=== PATIENT | female | born 1935 | race Caucasian/White ===

== ENCOUNTER 2016-06-26 14:32 | Inpatient (IN) | payer MEDICARE, BC ==
--- NOTE | 2016-06-21 12:35 | MH ---
cc: DEYA MORALES DATE OF ADMISSION: 07/04/2016 ADMITTING DIAGNOSIS Osteoarthritis of the right hip and pain of the right hip. HISTORY The patient is a 80-year-old white female who has experienced pain of her right hip of at least 7 months' duration. She had noted the gradual onset of her pain unrelated to injury or unusual activity. She had been receiving chiropractic intervention that had not proven to be of any appreciable benefit and with the passage of time became increasingly more symptomatic with pain that had begun to interfere with all ambulatory activities. She had been taking Advil and meloxicam for pain management as prescribed by her primary care physician that unfortunately had not afforded her any significant pain relief. She was later seen by the undersigned physician in March of this past year and at that time x-ray studies of her right hip revealed obvious degenerative changes with pronounced compromise of the joint space and hypertrophic bony reaction involving the margins of the femoral head. Additional degenerative changes were noted throughout the entire lumbar region. Findings and treatment options were reviewed with the patient at that time. She was not quite ready to commit to any form of aggressive intervention. She was prescribed tramadol for pain management and thereafter followed on an outpatient basis. She returned to the office in the more recent past indicating that with the passage of time she was becoming increasingly more symptomatic with pain and felt that she was ready to proceed with a more definitive course of treatment. The involvement of total hip arthroplasty was outlined in detail with emphasis being made that the decision to proceed with surgery would be left entirely to the patient's discretion. She felt that she had arrived at that point in time and was ready to proceed with operative treatment as discussed. In compliance with her wishes she is currently being admitted in order that the above be accomplished. PAST MEDICAL HISTORY 1. Significant for having undergone a left total hip arthroplasty for which the patient had done quite well in this regard. 2. Additional surgeries have included acromioplasty of the left shoulder with mini-open rotator cuff repair. 3. Multiple dental extractions subsequently necessitating full dentures. 4. Laparoscopic cholecystectomy. 5. Tonsillectomy. 6. D&C. 7. section. 8. Sinus surgery. 9. Retinal surgery of the left eye. 10. Hospitalized in the past for both chest pain that did lead to cardiac catheterization. 11. More recently medical management of bronchitis. MEDICAL ILLNESSES Hypothyroidism. Heart disease. CURRENT MEDICATIONS 1. Synthroid 88 mcg daily. 2. Amlodipine 5 mg daily. 3. Vitamin D3. 4. Tramadol 50 mg p.r.n. 5. Saline nasal spray daily. 6. Currently she is started on cephalexin for history of an abscess of her right elbow. ALLERGIES She indicates drug allergy to - CODEINE. POSSIBLY TRAMADOL that has been associated with some degree of nausea and vomiting. She has tolerated Demerol without adverse side effect and possibly morphine. NEOSPORIN has caused skin irritation. REVIEW OF SYSTEMS HEENT: She does wear glasses. Denies headache, seizure or syncope. Occasional sinus congestion as related to environmental irritants. No epistaxis. Auditory acuity intact. No tinnitus. No bleeding gums or dysphagia. Has complete dentures. CARDIORESPIRATORY: Occasional shortness of breath related to cardiac disease. Positive history for angina, status post cardiac catheterization. GI: Appetite good. History of irritable bowel syndrome with occasional diarrhea. No hepatitis. Status post cholecystectomy. No ulcers. Previous history of hemorrhoids. : No urinary tract infection. No kidney stones. MUSCULOSKELETAL: Fracture of the lower leg treated by cast immobilization. History of scoliosis. PSYCHIATRIC: No psychiatric illness. Remaining review of systems is unremarkable and noncontributory. FAMILY HISTORY The patient has been a for approximately three years, her at 85 years of age with history of bone cancer. She has three living sons, one son secondary to trauma related to an automobile accident. A daughter at 40 years of age secondary to ethanol abuse. Her family history is positive for hypertension, stroke, skin cancer and heart disease. SOCIAL HISTORY The patient has been retired for at least 20 years, having worked in the [employer] business. She completed a high school education. Denies active use of tobacco for at least 20 years but had been a 30 pack-year user in her past. Limited ethanol consumption socially. PHYSICAL EXAMINATION GENERAL: Height 5 feet, 1 inch, weight 115 pounds. An alert, oriented and responsive 80-year-old white female who sits quietly upon the examination table with no obvious distress. HEAD, EYES, EARS, NOSE, AND THROAT: Pupils are equally, round and reactive to light. Extraocular movements full. Sclerae clear. External nares clear. External auditory canals clear. Edentulous. Mucous membranes pink and moist. Pharynx clear. NECK: Supple. Active mobility without significant pain. Carotid pulse palpable bilaterally. Trachea midline. Thyroid without enlargement. LUNGS: Clear to auscultation and percussion. No CVA tenderness. No discomfort throughout the dorsal lumbar spine. HEART: Regular rhythm. No murmur or gallop. ABDOMEN: Soft, nontender. Bowel sounds present. PELVIC: Per primary care physician. EXTREMITIES: Right hip - There is no localizing tenderness about the hip area. There is restricted mobility of the hip joint in all ranges assessed, being most pronounced with internal rotation and pain associated with the extremes of motion. No sensation of crepitation or instability. Straight-leg raising negative at 80 degrees. Dru sign positive. Antalgic gait. NEUROLOGIC: Cranial nerves II-XII grossly intact. IMPRESSION Osteoarthritis right hip. Pain right hip. PLAN Right total hip arthroplasty. The nature of the planned surgical procedure, the potential complications and risks associated, the expectations of surgery and the consent form were thoroughly reviewed with the patient prior to her admission to the hospital. Dolores has indicated her full understanding regarding all the above and given consent to proceed with treatment as outlined. Medical evaluation and clearance for surgery will be completed by her primary care physician Dr. Joe Craft. MD SACHA Lujan/SSB /12:06 PM /12:21 PM
[~2016-06-26] VITALS: Ht 152.4 cm; Wt 58.4 kg
[2016-06-27] MEDS ORDERED: TRAM50TA PO (10:07)
[2016-06-27] MEDS ORDERED: VITA100036 PO (10:07)
[2016-06-27] MEDS ORDERED: AMLO5TAB2 PO (10:07)
[2016-06-27] MEDS ORDERED: SYNT88TA PO (10:07)
[2016-06-27] MEDS ORDERED: NITR1SUB3 SL (10:08)
[2016-07-04] MEDS ORDERED: ceFAZolin 2 GM PREMIX 50 ML IV SCH (07:15)
[2016-07-04] MEDS ORDERED: METOPROLOL TARTRATE 25 MG TAB PO PRN (07:15)
[2016-07-04] MEDS ORDERED: POVIDONE IODINE 7.5% SCRUB 118 ML BOTTLE TOP SCH (07:15)
[2016-07-04] MEDS ORDERED: INSULIN HUMAN REGULAR 1,000 UNITS/10 ML VIAL SQ PRN (07:15)
[2016-07-04] MEDS ORDERED: CEPH-460 PO (07:18)
[2016-07-04 07:27] VITALS: BP 138/88; PULSE 80; RESP 18; TEMP 98.4; O2SAT 98
[2016-07-04] MEDS ORDERED: LACTATED RINGER'S 1000 ML IV SCH (08:00)
[2016-07-04] MEDS ORDERED: SODIUM CHLORID 0.9% 500 ML IV SCH (08:00)
[2016-07-04] MEDS ORDERED: TRANEXAMIC ACID 1 GM PRIOR TO PROCEDURE IV SCH ×2 (08:00)
[2016-07-04] MEDS: TRANEXAMIC ACID 1 GM POST-OP IV SCH ×4 (08:43→18:07)
[2016-07-04] MEDS ORDERED: ACETAMINOPHEN 1000 MG/100 ML VIAL IV ONE (09:46)
[2016-07-04] MEDS ORDERED: ceFAZolin INJ 1,000 MG VIAL ONE (09:57)
[2016-07-04] MEDS ORDERED: PHENYLEPH/NS 1000 MCG/10 ML SYR IV ONE (12:00)
[2016-07-04] MEDS ORDERED: PROPOFOL 200 MG/20 ML AMP IV ONE (12:00)
[2016-07-04] MEDS ORDERED: LACTATED RINGER'S 1000 ML INJ 1,000 ML IV ONE (12:00)
[2016-07-04] MEDS ORDERED: fentaNYL CITRATE 250 MCG/5 ML AMP ONE (12:12)
[2016-07-04] MEDS ORDERED: DO NOT ADM ANY ANTICOAGULANT DRUGS XX PRN (12:43)
[2016-07-04] MEDS: DEXT 5%-NACL 0.45% 1000 ML INJ 1,000 ML IV SCH (12:48)
[2016-07-04] MEDS ORDERED: MAGNESIUM HYDROXIDE SUSP 30 ML CUP PO PRN (13:00)
[2016-07-04] MEDS ORDERED: PROMETHAZINE INJ 25 MG/ML VIAL IM PRN (13:00)
[2016-07-04] MEDS ORDERED: MEPERIDINE HCL 50 MG TAB PO PRN (13:00)
[2016-07-04] MEDS ORDERED: SODIUM CHLORIDE 0.9% FLUSH 5 ML FLUSH IVF PRN (13:00)
[2016-07-04] MEDS ORDERED: TRANEXAMIC ACID INJ 1,000 MG in SODIUM CHLORIDE 0.9% INJ 100 ML IV SCH (13:00)
[2016-07-04] MEDS ORDERED: diphenhydrAMINE HCL 25 MG CAP PO PRN (13:00)
[2016-07-04] MEDS ORDERED: MISCELLANEOUS PHARMACY INFORMATION XX ONE (13:00)
[2016-07-04] MEDS ORDERED: Post-op Orders (for Pharmacy) MISC XX ONE (13:00)
[2016-07-04] MEDS ORDERED: ACETAMINOPHEN 325 MG TAB PO PRN (13:00)
[2016-07-04] MEDS ORDERED: DOCUSATE SODIUM 100 MG CAP PO PRN (13:00)
[2016-07-04] MEDS ORDERED: BISACODYL 10 MG SUPP PR PRN (13:00)
[2016-07-04] MEDS ORDERED: NALOXONE HCL 0.4 MG/ML AMP IV PRN (13:00)
--- NOTE | 2016-07-04 13:46 | MP ---
cc: DEYA WINN DATE OF SURGERY: July 04, 2016 PREOPERATIVE DIAGNOSIS Osteoarthritis of the right hip and pain of the right hip. POSTOPERATIVE DIAGNOSIS Osteoarthritis of the right hip and pain of the right hip. PROCEDURE Right total hip arthroplasty. SURGEON Dr. Deya Winn. ANESTHESIA Spinal. INDICATIONS A 80-year-old white female with pain of her right hip of at least 7 months duration. She had noted gradual onset of her symptoms unrelated to injury or unusual activity. She had previously been receiving chiropractic intervention that did not prove to be any appreciable benefit and with the passage of time she became progressively more symptomatic with pain that began to interfere with all ambulatory activities. She had been taking both Advil and meloxicam for pain management as prescribed by her primary care physician that unfortunately had not proven to be of any significant pain relief. She was later seen by the undersigned physician in March of this past year and at that time her x-ray studies revealed obvious degenerative changes with pronounced compromise of the joint space and hypertrophic bony reaction involving the margins of the femoral head. Additional degenerative changes were noted throughout the entire lumbar spine. Findings and treatment options were reviewed with the patient at that time, she indicated she was not ready to commit to any aggressive intervention, especially as related to operative treatment. She was prescribed tramadol for pain management and followed on an outpatient basis thereafter. She returned to the office in the more recent past indicating that with the passage of time she was becoming increasingly more symptomatic with pain and felt that she was ready to proceed with a more definitive course of treatment. The involvement of total hip arthroplasty was outlined in detail with emphasis being made that the decision to proceed with surgery would be left entirely to the patient's discretion. She indicated that she had arrived at that point in time and was ready to proceed in this direction and in compliance with her wishes she was scheduled for admission at this time in order that total hip replacement be completed. FORMAT Following induction of satisfactory spinal anesthesia as completed per the Department of Anesthesia, the patient was positioned upon the operating table in a left lateral decubitus fashion. The right hip and lower extremity proper were isolated with a U drape, thereafter being prepped with Betadine solution and draped into a sterile field in the routine manner. Prior to initiation of the actual procedure the standard time-out protocol was completed, all parameters were appropriately addressed and confirmed by operating room personnel. A standard posterolateral approach to the hip was initiated through a sharp skin incision and developed through underlying subcutaneous tissue with hemostasis being maintained by electrocautery. By deepening dissection the fascia overlying the gluteus musculature was exposed and thereafter sharply incised to the limits of the incision. The underlying gluteus fibers were bluntly divided with the Bovie on cutting current. Progressive dissection facilitated exposure of the short external rotator structures. The piriformis tendon was utilized as an anatomical landmark and division of these structures was completed in a superior to inferior orientation reflected medially exposing the posterior capsule. The sciatic nerve was protected. An L-shaped capsulotomy was accomplished which a posterior dislocation of the femoral head was completed. Examination revealed severe degenerative changes with pronounced hypertrophic bony reaction along the margins of the femoral head as well as significant erosion of articular cartilage and underlying subchondral bone exposed. The femoral template was positioned for alignment orientation. The neck was scored and thereafter divided with power saw. The amputated segment being passed to the back table as surgical specimen. Attention was initially directed to the proximal femur. Cancellus bone was harvested. The tapered reamer was inserted for alignment orientation. Sequential rasping and broaching was thereafter accomplished from 7-12 mm with a 12 mm stem determined to be a favorable fit. The trial component being removed attention was redirected to the acetabulum. The labrum and reactive soft tissue were sharply excised. Progressive reaming was accomplished from 48-51 mm. The 52 trial shell was positioned and determined to be satisfactory. The trial component being removed, the wound was copiously irrigated with pulsating antibiotic solution. Hemostasis maintained by electrocautery. Harvested cancellous bone was digitally impacted into the depths of the acetabulum and thereafter a 52 mm ring lock acetabular shell was firmly seated in approximately 45 degrees inclination to the horizontal and slight anteversion. A single 25 mm 6.5 cancellous screw was inserted superiorly to augment fixation. The permanent high wall acetabular liner was affixed to the acetabular shell. Attention was redirected to the proximal femur. The trial size 12 femoral broach was repositioned and a trial reduction followed utilizing a 36 mm modular head with -6 mm neck length adapter. The hip readily reduced and was carried through a passive range of motion, stability being demonstrated at 90 degrees flexion and 45 degrees internal rotation. An open dislocation was completed. The trial femoral components being removed, the canal was thoroughly irrigated and dried and thereafter the size 12 Echo [employer] standard femoral stem was firmly seated to which a 36 mm ceramic head with -6 mm neck length adapter was attached. The hip again reduced and carried through a passive range of motion with stability being repeated as previously described. Final irrigation was accomplished. Hemostasis being maintained the posterior capsule was repaired with 0 Vicryl suture. Pyriformis tendon and short external rotator structures were reapproximated in a similar manner. Hemovac drain tubes were inserted through superior stab wounds. The fascia of the gluteus musculature was reapproximated with a running 0 Vicryl suture. The remaining portion of the wound was closed in layers in the routine manner. Skin margins being reapproximated with a running subcuticular 3-0 Vicryl suture over which Steri-Strips were applied. Xeroform gauze and a bulky dry sterile dressing were placed. The patient was repositioned into a supine orientation where an abduction splint was attached. Anesthesia was discontinued. Thereafter the patient was transferred to a hospital stretcher and returned to the recovery room in satisfactory condition having tolerated her operative procedure well. Estimated blood loss was approximately 200 ccs as determined per anesthesia. All implants were of the [employer] speech language pathology assistant. MD SACHA Lujan/TLEdwar /12:40 PM /1:14 PM
[2016-07-04] MEDS: PCA - TOTAL MG MORPHINE DELIVERED PER SHIFT SCH (14:00)
--- NOTE | 2016-07-04 14:47 | RADRPT ---
EXAM DATE/TIME: 07/04/2016 13:40 [facility] COMPARISON: No previous studies available for comparison. INDICATIONS : Post op right hip surgery. MEDICAL HISTORY : None. SURGICAL HISTORY : None. ENCOUNTER: Initial ACUITY: 1 day PAIN SCORE: Non-responsive. LOCATION: Right hip FINDINGS: A right total hip arthroplasty has been performed and the prosthesis appears to be in good position. CONCLUSION: Status post right total hip arthroplasty with prosthesis in good position. Tian Hernandez MD on July 04, 2016 at 14:44 Board Certified Radiologist. This report was verified electronically.
[2016-07-04 16:43] VITALS: BP 142/63; PULSE 82; RESP 16; TEMP 97.1; O2SAT 98
[2016-07-04] MEDS: MORPHINE SULFATE 30 MG/30 ML PCA IV SCH (18:07)
[2016-07-04 20:00] VITALS: BP 156/85; PULSE 98; RESP 17; TEMP 98.7; O2SAT 97
[2016-07-04] MEDS ORDERED: ZOLPIDEM TARTRATE 5 MG TAB PO PRN (21:00)
[2016-07-04] MEDS: SODIUM CHLORIDE 0.9% FLUSH 5 ML FLUSH IVF SCH (21:00)
[2016-07-05] VITALS (7 sets, daily range): BP systolic 120–144; BP diastolic 55–66; PULSE 98–103; RESP 16–18; TEMP 98.2–100.1; O2SAT 93–98
[2016-07-05] MEDS: PCA - TOTAL MG MORPHINE DELIVERED PER SHIFT SCH ×3 (02:57→22:00)
[2016-07-05] MEDS: DEXT 5%-NACL 0.45% 1000 ML INJ 1,000 ML IV SCH ×4 (02:59→19:51)
[2016-07-05] MEDS: MORPHINE SULFATE 30 MG/30 ML PCA IV SCH (03:00)
[2016-07-05 05:59] LABS: HEMATOCRIT 32.6 % (35.0-46.0); REVIEW FLAG FINAL
[2016-07-05] MEDS ORDERED: DEME50TA PO (06:17)
[2016-07-05] MEDS ORDERED: ASPI325T PO (06:17)
--- NOTE | 2016-07-05 06:20 | HHI.FF ---
Face to Face Verification Diagnosis: (1) Degenerative joint disease of right hip Physical Therapy Gait training Hip: Total hip, Protocol: Right, Abduction pillow while in bed, Progress to weight bearing Right LE Weight Bearing: WB as tolerated Right LE Range of Motion: Active ROM Nursing Dressing Changes: Daily dressing change I have seen patient Dolores Pierce on 07/05/16. My clinical findings support the need for the requested home health care services because: Limited ability to care for self High risk of falls I certify that my clinical findings support that this patient is homebound because: Post-op weakness Unsteady gait/balance Unsafe to leave home unassisted Brady Winn MD Jul 05, 2016 06:20
[2016-07-05] MEDS ORDERED: BEDSIDE COMMODE1 MI1 (06:26)
[2016-07-05] MEDS ORDERED: MISC-274 OTHER (06:26)
[2016-07-05] MEDS: SODIUM CHLORIDE 0.9% FLUSH 5 ML FLUSH IVF SCH ×2 (09:00→19:52)
[2016-07-05] MEDS ORDERED: ONDANSETRON HCL 4 MG/2 ML VIAL IV PUSH PRN (10:00)
--- NOTE | 2016-07-05 10:06 | PD.CONS ---
[facility] Reason for Consult Medical management Primary Care Physician Non-Staff Diagnoses: (1) Degenerative joint disease of right hip History of Present Illness Patient is a 72-year-old white female with complaints of right hip in the past 7 months admitted under orthopedic service, status post right hip replacement POD #1. Consulted for medical management. Patient complains of vomiting 1, unable to tolerate pain medication. Currently on FLEXO FOLDER GLUER OPERATOR IV morphine. As per RN, patient states that she is unable to take morphine as it was her. She usually gets tramadol half dose at home prior to surgery. Also patient has no BM since surgery. Otherwise, denies pain and discomfort. Denies SOB/ dyspnea. Denies chest pain, palpitations, headaches, dizziness. Denies fevers, chills, diarrhea. Review of Systems Constitutional: DENIES: Fever, Chills, Change in appetite Endocrine: DENIES: Heat/cold intolerance Eyes: DENIES: Blurred vision, Eye pain Other Negative except for what is noted on history of present illness. Past Family Social History Allergies: Coded Allergies: Codeine (Unverified Allergy, Severe, n/v, 07/04/16) Neosporin (Unverified Allergy, Severe, topically blisters rash, ) Uncoded Allergies: SYNTHETIC CODEINES (Adverse Reaction, Severe, NAUSEA AND VOMITING, 02/15/10) Past Medical History Hypothyroidism Hypertension [place] 1999 Osteoporosis Past Surgical History Left hip replacement Cholecystectomy Tonsillectomy Left shoulder, rotator cuff repair Sinus surgery Retinal surgery of the left eye Cardiac catheterization Reported Medications Synthroid 88 g daily Amlodipine 5 g daily Vitamin D3 Tramadol 50 mg when necessary Salines spray daily Active Ordered Medications Current Medications Medications (Trade) Dose Ordered Sig/Georgette Route Start Time Stop Time Status Last Admin Povidone Iodine 1 applic 1 applic ONCE TOP 07/04/16 07:15 07/07/16 07:14 (D5W-1/ NS 1000 ml Inj) 1,000 ml @ 125 mls/hr Q8H IV 07/04/16 12:48 07/05/16 02:59 (NS Flush) 2 ml UNSCH PRN IVF 07/04/16 13:00 (NS Flush) 2 ml BID IVF 07/04/16 21:00 (Xarelto) 10 mg Q24H PO 07/05/16 12:00 07/05/16 12:14 (Tylenol) 650 mg Q6H PRN PO 07/04/16 13:00 (Colace) 100 mg BID PRN PO 07/04/16 13:00 (Ambien) 5 mg HS PRN PO 07/04/16 21:00 (Dulcolax Supp) 10 mg DAILY PRN W[place] 07/04/16 13:00 (Milk Of Magnesia Liq) 30 ml DAILY PRN PO 07/04/16 13:00 (Narcan Inj) 0.4 mg UNSCH PRN IV 07/04/16 13:00 07/06/16 12:59 (Benadryl) 25 mg Q6H PRN PO 07/04/16 13:00 07/06/16 12:59 (Morphine 1 Mg/ ml FLEXO FOLDER GLUER OPERATOR) 30 mg UNSCH IV 07/04/16 13:00 07/06/16 12:59 07/05/16 03:00 FLEXO FOLDER GLUER OPERATOR Dosage Infused (Pha) 1 Q8HR .XX 07/04/16 14:00 07/06/16 13:59 07/05/16 02:57 (Phenergan Inj) 25 mg Q6H PRN IM 07/04/16 13:00 (Demerol) 50 mg Q4H PRN PO 07/04/16 13:00 (Zofran Inj) 4 mg Q6HR PRN IV PUSH 07/05/16 10:00 (Ultracet 37.5-325 Mg) 1 tab Q6H PRN PO 07/05/16 10:15 (Ultracet 37.5-325 Mg) 2 tab Q6H PRN PO 07/05/16 10:15 Family History Cancer both father (bladder) and mother (unknown) Social History Occasional alcohol use Denies tobacco use Denies illicit drug use Physical Exam Vital Signs Vital Signs Date Time Temp Pulse Resp B/P Pulse Ox O2 Delivery O2 Flow Rate FiO2 07/05/16 04:47 100.1 100 16 130/55 96 07/05/16 03:00 16 07/05/16 02:57 16 07/05/16 00:00 98.2 98 17 135/61 95 07/04/16 20:00 98.7 98 17 156/85 97 07/04/16 18:07 12 07/04/16 16:43 97.1 82 16 142/63 98 07/04/16 16:00 81 12 158/77 99 Nasal Cannula 2 07/04/16 15:30 78 12 148/73 99 Nasal Cannula 2 07/04/16 15:00 98.1 79 12 162/83 98 Nasal Cannula 2 07/04/16 14:45 71 12 143/88 99 Nasal Cannula 2 07/04/16 14:30 76 12 150/74 99 Nasal Cannula 2 07/04/16 14:15 74 12 144/78 99 Nasal Cannula 2 07/04/16 14:00 72 12 135/74 98 Nasal Cannula 2 07/04/16 13:45 78 12 131/67 99 Nasal Cannula 2 07/04/16 13:30 71 12 115/65 98 Nasal Cannula 2 07/04/16 13:15 63 12 115/58 99 Nasal Cannula 2 07/04/16 13:00 62 12 109/58 99 Nasal Cannula 2 07/04/16 12:45 61 12 104/47 99 Nasal Cannula 2 07/04/16 12:39 97.4 73 12 106/54 99 Nasal Cannula 2 Physical Exam GENERAL: This is a well-nourished, well-developed patient, in no apparent distress. SKIN: No rashes, ecchymoses or lesions. Cool and dry. HEAD: Atraumatic. Normocephalic. No temporal or scalp tenderness. EYES: Pupils equal round and reactive. Extraocular motions intact. No scleral icterus. No injection or drainage. ENT: Nose without bleeding. Throat without erythema. Uvula midline. Airway patent. NECK: Trachea midline. No JVD or lymphadenopathy. Supple, nontender, no meningeal signs. CARDIOVASCULAR: Regular rate and rhythm without murmurs, gallops, or rubs. RESPIRATORY: Clear to auscultation. Breath sounds equal bilaterally. No wheezes , rales, or rhonchi. GASTROINTESTINAL: Abdomen soft, non-tender, nondistended. Hypoactive bowel sounds.. MUSCULOSKELETAL: Extremities without clubbing, cyanosis, RLE trace edema. Right lower extremity postop decrease our OM. NEUROLOGICAL: Awake and alert. Motor and sensory grossly within normal limits. No focal neuro deficit. Normal speech. Laboratory Laboratory Tests Test 07/05/16 04:55 Hemoglobin 10.7 Hematocrit 32.6 Result Diagram: 07/05/16 0455 Imaging Last Impressions Hip X-Ray 07/04/16 1248 Signed Impressions: Service Date/Time: Monday, July 04, 2016 13:40 - CONCLUSION: Status post right total hip arthroplasty with prosthesis in good position. Tian Hernandez MD Assessment and Plan Problem List: (1) Degenerative joint disease of right hip ICD Code: M16.11 Status: Acute (2) Hypothyroidism ICD Code: E03.9 Status: Acute (3) HTN (hypertension) ICD Code: I10 Status: Acute Assessment and Plan Vision is a 80-year-old white female who came in to the hospital under orthopedic service for complaints of right hip pain for 7 months. Patient status post right hip replacement. Consulted for medical management. Status post right hip replacement, POD #1 - orthopedic service management - PT OT consult - Pain management - currently on IV morphine FLEXO FOLDER GLUER OPERATOR. Discontinue FLEXO FOLDER GLUER OPERATOR. Start tramadol 37.5/325 1-1 tabs PRN for pain Nausea/vomiting - On Phenergan IM. We will add Zofran when necessary - Monitor for relief HTN - BP trend within normal for now. She takes Norvasc 5 mg at home, states it is more for spasms then hypertension however she also reports that she has a heart attack in 1999. Continue to monitor BP trend. Hypothyroidism - continue Synthroid use. DVT prop on Xarelto 10mg daily Thank you for this consultation. We will follow patient with you. Written by Sagar Zamora, acting as scribe for Dr. Morris on 07/05/16 at 09:58. The documentation accurately reflects the work performed [id number] by me, Jose F Morris D.O on 07/05/16 at 09:58 Code Status Full code Discussed Condition With Patient, nursing - Carly Roper DO Jul 05, 2016 10:06 Sagar Malone Jul 05, 2016 12:59
[2016-07-05] MEDS ORDERED: traMADol/ACETAMINOPHEN 37.5/325 1 TAB PO PRN (10:15)
[2016-07-05] MEDS: RIVAROXABAN 10 MG TAB PO SCH (12:14)
[2016-07-05] MEDS: traMADol/ACETAMINOPHEN 37.5/325 1 TAB PO PRN (18:42)
[2016-07-06] VITALS (8 sets, daily range): BP systolic 106–124; BP diastolic 50–96; PULSE 89–100; RESP 16–18; TEMP 96–99.5; O2SAT 91–99
[2016-07-06] MEDS: traMADol/ACETAMINOPHEN 37.5/325 1 TAB PO PRN ×3 (05:34→18:26)
[2016-07-06] MEDS: PCA - TOTAL MG MORPHINE DELIVERED PER SHIFT SCH (06:00)
[2016-07-06] MEDS: SODIUM CHLORIDE 0.9% FLUSH 5 ML FLUSH IVF SCH ×2 (09:00→21:00)
[2016-07-06] MEDS: RIVAROXABAN 10 MG TAB PO SCH (12:40)
--- NOTE | 2016-07-06 13:14 | HHI.PR ---
Subjective Remarks Follow-up visit S/P right hip replacement, nausea/vomiting, constipation, HTN. Patient seen today. Reports she is doing well. Had a bowel movement today. Also reports tolerating pain medicine. Denies nausea, vomiting. Denies fevers , chills, SOB/dyspnea, chest pain, palpitations, headaches, dizziness. Objective Vitals Vital Signs Date Time Temp Pulse Resp B/P Pulse Ox O2 Delivery O2 Flow Rate FiO2 07/06/16 12:00 96.0 90 18 124/58 99 07/06/16 09:35 95 07/06/16 08:00 98.3 92 17 112/62 93 07/06/16 06:00 18 07/06/16 04:00 99.5 92 16 115/57 94 07/06/16 00:00 97.2 94 16 118/50 96 07/05/16 22:00 18 07/05/16 20:00 99.7 100 16 138/65 96 07/05/16 16:00 99.7 100 18 144/66 98 07/05/16 16:00 16 07/05/16 15:51 93 21 I/O 07/05/16 07/05/16 07/05/16 07/06/16 07/06/16 07/06/16 07:00 15:00 23:00 07:00 15:00 23:00 Intake Total 670 ml 1550 ml 532 ml Output Total 20 ml 70 ml 70 ml Balance 650 ml 1480 ml 462 ml Intake Oral 240 ml 840 ml 240 ml IV Total 430 ml 710 ml 292 ml Output Drainage Total 20 ml 70 ml 70 ml # Voids 0 4 1 # Bowel Movements 0 0 1 Result Diagram: 07/05/16 0455 Imaging Last Impressions Hip X-Ray 07/04/16 1248 Signed Impressions: Service Date/Time: Monday, July 04, 2016 13:40 - CONCLUSION: Status post right total hip arthroplasty with prosthesis in good position. Tian Hernandez MD Objective Remarks GENERAL: This is a well-nourished, well-developed patient, in no apparent distress. SKIN: No rashes, ecchymoses or lesions. Cool and dry. HEAD: Atraumatic. Normocephalic. No temporal or scalp tenderness. EYES: Pupils equal round and reactive. Extraocular motions intact. No scleral icterus. No injection or drainage. ENT: Nose without bleeding. Throat without erythema. Uvula midline. Airway patent. NECK: Trachea midline. No JVD or lymphadenopathy. Supple, nontender, no meningeal signs. CARDIOVASCULAR: Regular rate and rhythm without murmurs, gallops, or rubs. RESPIRATORY: Clear to auscultation. Breath sounds equal bilaterally. No wheezes , rales, or rhonchi. GASTROINTESTINAL: Abdomen soft, non-tender, nondistended. Hypoactive bowel sounds.. MUSCULOSKELETAL: Extremities without clubbing, cyanosis, RLE trace edema. Right lower extremity postop decrease our ROM. NEUROLOGICAL: Awake and alert. Motor and sensory grossly within normal limits. No focal neuro deficit. Normal speech. A/P Problem List: (1) Degenerative joint disease of right hip ICD Code: M16.11 Status: Acute (2) Hypothyroidism ICD Code: E03.9 Status: Acute (3) HTN (hypertension) ICD Code: I10 Status: Acute Assessment and Plan Patient is a 80-year-old white female who came in to the hospital under orthopedic service for complaints of right hip pain for 7 months. Patient status post right hip replacement. Consulted for medical management. Status post right hip replacement, POD #2 - orthopedic service management - PT OT consult - Pain management -on tramadol 37.5/325 1-1 tabs PRN for pain. Tolerating well. Nausea/vomiting - On Phenergan IM. On Zofran when necessary. Improved. HTN - BP trend within normal for now. She takes Norvasc 5 mg at home, states it is more for spasms then hypertension however she also reports that she has a heart attack in 1999. - Continue to monitor BP trend. Hypothyroidism - continue Synthroid use. DVT prop on Xarelto 10mg daily Written by Sagar Zamora, acting as scribe for Dr. Morris on 07/06/16 at 10:48. The documentation accurately reflects the work performed [id number] by me, Jose F Morris D.O on 07/06/16 at 10:48. Discharge Planning Plan to [place] home tomorrow with [employer] as per primary team. Sagar Malone Jul 06, 2016 13:14 Carly Morris DO Jul 06, 2016 22:19
[2016-07-06] MEDS ORDERED: diphenhydrAMINE HCL 25 MG CAP PO PRN (18:45)
[2016-07-07] VITALS: BP 123/56; PULSE 91; RESP 20; TEMP 98.3; O2SAT 96
[2016-07-07] MEDS: traMADol/ACETAMINOPHEN 37.5/325 1 TAB PO PRN ×2 (01:18→07:40)
[2016-07-07] MEDS: DEXT 5%-NACL 0.45% 1000 ML INJ 1,000 ML IV SCH (04:48)
[2016-07-07] MEDS: SODIUM CHLORIDE 0.9% FLUSH 5 ML FLUSH IVF SCH (07:42)
[2016-07-07 08:00] VITALS: BP 123/57; PULSE 92; RESP 20; TEMP 98.9; O2SAT 97
--- NOTE | 2016-07-07 09:12 | HHI.PR ---
Subjective Remarks Follow-up visit S/P right hip replacement. Ms. Pierce is doing well. No acute concerns. Denies any fever, chills. Tolerating diet well. Had BM. She is going to a rehab place in [place], [place]. Objective Vitals Vital Signs Date Time Temp Pulse Resp B/P Pulse Ox O2 Delivery O2 Flow Rate FiO2 07/07/16 00:00 98.3 91 20 123/56 96 07/06/16 23:01 91 21 07/06/16 20:00 98.5 89 18 106/54 94 07/06/16 16:00 98.5 100 18 113/96 96 07/06/16 12:00 96.0 90 18 124/58 99 07/06/16 09:35 95 I/O 07/06/16 07/06/16 07/06/16 07/07/16 07/07/16 07/07/16 07:00 15:00 23:00 07:00 15:00 23:00 Intake Total 532 ml 960 ml 240 ml Output Total 70 ml Balance 462 ml 960 ml 240 ml Intake Oral 240 ml 960 ml 240 ml IV Total 292 ml Output Drainage Total 70 ml # Voids 1 4 2 # Bowel Movements 1 0 1 Result Diagram: 07/05/16 0455 Imaging Last Impressions Hip X-Ray 07/04/16 1248 Signed Impressions: Service Date/Time: Monday, July 04, 2016 13:40 - CONCLUSION: Status post right total hip arthroplasty with prosthesis in good position. Tian Hernandez MD Objective Remarks GENERAL: AOX3, NAD. SKIN: Warm and dry. HEAD: Normocephalic. EYES: No scleral icterus. No injection or drainage. NECK: Supple, trachea midline. No JVD or lymphadenopathy. CARDIOVASCULAR: Regular rate and rhythm without murmurs, gallops, or rubs. RESPIRATORY: Breath sounds equal bilaterally. No accessory muscle use. GASTROINTESTINAL: Abdomen soft, non-tender, nondistended. MUSCULOSKELETAL: No cyanosis, or edema. s/p right ADILSON. BACK: Nontender without obvious deformity. No CVA tenderness. Procedures right total hip arthroplasty A/P Problem List: (1) Degenerative joint disease of right hip ICD Code: M16.11 Status: Acute (2) Hypothyroidism ICD Code: E03.9 Status: Acute (3) HTN (hypertension) ICD Code: I10 Status: Acute Assessment and Plan Patient is a 80-year-old white female who came in to the hospital under orthopedic service for complaints of right hip pain for 7 months. Patient status post right hip replacement. Consulted for medical management. Status post right hip replacement, POD #3 - orthopedic service management - Pain management -on tramadol 37.5/325 1-1 tabs PRN for pain. Tolerating well. Nausea/vomiting - On Phenergan IM. On Zofran when necessary. Improved. HTN - BP trend within normal for now. She takes Norvasc 5 mg at home, states it is more for spasms then hypertension however she also reports that she has a heart attack in 1999. - Continue to monitor BP trend. Hypothyroidism - continue Synthroid use. Full code. Xajerel. Patient is being discharged to SNF today. Carly Morris DO Jul 07, 2016 9:12 am
[2016-07-07 10:21] VITALS: O2SAT 95
[2016-07-07] MEDS: RIVAROXABAN 10 MG TAB PO SCH (11:24)
[2016-07-07] MEDS ORDERED: TRAM-388 PO (11:34)
[2016-07-07 12:00] VITALS: BP 107/54; PULSE 88; RESP 20; TEMP 99.3; O2SAT 95
--- NOTE | 2016-07-12 08:35 | MD ---
cc: DEYA MORALES ALBERT J. MD ADMISSION DATE: 07/04/2016 DISCHARGE DATE: 07/07/2016 ADMISSION DIAGNOSES Osteoarthritis of the right hip. Pain of the right hip. DISCHARGE DIAGNOSES Osteoarthritis of the right hip. Pain of the right hip. HISTORY A 80-year-old white female with pain of her right hip of at least seven months' duration. She had experienced a gradual onset of her symptoms unrelated to injury or unusual activity. She had undergone previous chiropractic intervention that had not proven to be of any appreciable benefit and with the passage of time she became increasingly more symptomatic with pain that began to interfere with all ambulatory activities. She had been taking Advil and meloxicam for pain management as prescribed by her primary care physician that unfortunately had not afforded her any significant relief. She was subsequently seen by the undersigned physician in March of this past year and at that time her x-ray studies revealed obvious degenerative changes with pronounced compromise of the joint space and hypertrophic bony reaction involving the margins of the femoral head with additional degenerative involvement throughout the entire lumbar spine. Findings and treatment options were reviewed. The patient was not ready to commit to any form of aggressive intervention for which she was prescribed tramadol for pain management and followed on an outpatient basis. She returned to the office in the more recent past indicating that she was becoming increasingly more symptomatic with pain and felt she had reached a point in time where she was ready to proceed with a more definitive course of treatment. The involvement of total hip arthroplasty was outlined in detail with emphasis being made at the decision to proceed with surgery would be left entirely to the patient's discretion. She felt that she had reached that point in time where she was ready to proceed with such treatment and in compliance with her wishes she was scheduled for admission at this time in order that total hip replacement be completed. PHYSICAL EXAMINATION Her physical examination at the time of admission revealed no localizing discomfort about the right hip. There was restricted mobility of the hip joint in all ranges assessed, being most pronounced with internal rotation and pain associated with the extremes of motion. There was no sensation of crepitation or instability. Straight-leg raising was negative at 80 degrees. Dru's sign positive. Antalgic gait. HOSPITAL COURSE Prior to admission to the hospital the patient had undergone medical evaluation and clearance for surgery as completed by her primary care physician, Dr. Joe Razzetti. She was taken to the operating room on July 04, 2016, and on that date underwent a right total hip arthroplasty completed in an uncomplicated manner. The patient was noted to have tolerated her operative procedure well and her postoperative course stable thereafter. Hemoglobin/hematocrit assessment postoperatively was 10.7 and 32.6 respectively. The patient was progressively mobilized under the guidance of physical therapy being permitted weightbearing to tolerance about her right lower extremity. Follow-up examination of her surgical wound noted be intact, healing favorably, no evidence of infection. Medical followup per the hospitalist service. DVT prophylaxis initiated. Director [employer] consulted to assist this discharge planning. The patient had indicated her desire for temporary rehab placement. Director [employer] assisted with making arrangements in this regard and pending medical clearance she was scheduled for transfer on the third postoperative day at which time she was noted making favorable progress with regards to her rehab program. She was scheduled be seen in office followup in approximately four weeks. Her condition at the time of transfer was stable. Prognosis favorable. DISCHARGE MEDICATIONS 1. Demerol 50 mg, #50. 2. Aspirin 325 mg one tablet twice daily for 4 weeks, #60. MD SACHA Lujan/SSB /6:47 AM /8:25 AM
== END 2016-07-07 12:55 | DRG 470 ==
LOC: HSDI 07-04 06:35 → N06A 07-04 16:29
PROVIDERS: ADMIT Orthopaedic Surgery; ATTEND Orthopaedic Surgery
PROC: 0SR903A Replacement of Right Hip Joint with Ceramic Synthetic Substitute, Uncemented, Open Approach (ICD-10-PCS; principal; 2016-07-04 10:04)
DX: M16.11 Unilateral primary osteoarthritis, right hip (principal); Z96.642 Presence of left artificial hip joint; I10 Essential (primary) hypertension; E03.9 Hypothyroidism, unspecified; M81.0 Age-related osteoporosis without current pathological fracture; R11.2 Nausea with vomiting, unspecified; K59.00 Constipation, unspecified; I25.2 Old myocardial infarction; Z87.891 Personal history of nicotine dependence
CPT/HCPCS: 73501; 85014; 85018; 88304; 88311; 94150; C1776; J0131; J0690; J2270; J2370; J3010; J7120

== ENCOUNTER → 2016-06-27 | Outpatient (CLI) | payer MEDICARE, BC ==
[~2016-06-27] MED LIST: AMLO5TAB2 PO; AMLO5TAB96 PO; ASPI325T PO; BEDSIDE COMMODE1 MI1; CALC600T34 PO; CEPH-460 PO; DEME50TA PO; MISC-274 OTHER; NITR0.4S SL; NITR1SUB3 SL; SYNT88TA PO; TRAM-388 PO; TRAM50TA PO; VITA100036 PO; VITATAB25 PO
[2016-06-27 11:54] LABS: HEMATOCRIT 39.8 % (35.0-46.0); MEAN CELL VOLUME 83.2 FL (80.0-100.0); MEAN CORPUSCULAR HEMOGLOBIN 27.5 PG (27.0-34.0); MEAN CORPUSCULAR HGB CONC 33.1 % (32.0-36.0); PLATELET COUNT 247 TH/MM3 (150-450); RED BLOOD COUNT 4.78 MIL/MM3 (4.00-5.30); RED CELL DISTRIBUTION WIDTH 14.1 % (11.6-17.2); REVIEW FLAG FINAL; WHITE BLOOD COUNT 7.7 TH/MM3 (4.0-11.0)
--- NOTE | 2016-06-27 11:54 | RADRPT ---
EXAM DATE/TIME: 06/27/2016 11:10 [facility] COMPARISON: No previous studies available for comparison. INDICATIONS : Evaluate for pneumonia,pneumothorax, and communicable diseases. Pre-op hip surgery MEDICAL HISTORY : Bronchitits SURGICAL HISTORY : None. ENCOUNTER: Initial ACUITY: 1 day PAIN SCORE: 0/10 LOCATION: chest FINDINGS: The lungs are hyperinflated but focally clear. No effusion is suspected. Cardiomediastinal contours a nd pulmonary vascularity are within normal limits. There is degenerative change present in the spine CONCLUSION: No acute disease Sixto Benedict MD on June 27, 2016 at 11:51 Board Certified Radiologist. This report was verified electronically.
[2016-06-27 12:00] LABS: BLOOD, URINE NEG (NEG); GLUCOSE,URINE NEG (NEG); KETONE, URINE NEG (NEG); NITRITE,URINE NEG (NEG); PH, URINE 5.5 (5.0-8.5); URINE COLOR LIGHT-YELLOW (YELLW/STRAW)
[2016-06-27 12:01] LABS: COMMENT (UR) CATH-CULT NOT IND; CULTURE IF INDICATED CATH CULTURE NOT IND
[2016-06-27 12:09] LABS: PROTHROMBIN TIME - PATIENT 10.6 SEC (9.8-11.6)
[2016-06-27 12:25] LABS: BICARBONATE 26.9 MEQ/L (21.0-32.0); POTASSIUM 4.2 MEQ/L (3.5-5.1)
== END ==
LOC: CPRE 09:35
PROVIDERS: ATTEND Orthopaedic Surgery
DX: Z01.811 Encounter for preprocedural respiratory examination (principal); Z01.810 Encounter for preprocedural cardiovascular examination; Z01.812 Encounter for preprocedural laboratory examination; M16.11 Unilateral primary osteoarthritis, right hip; M25.551 Pain in right hip
CPT/HCPCS: 36415; 71020; 80048; 81001; 85027; 85610